=== PATIENT | female | born 1980 | race Caucasian/White ===

== ENCOUNTER 2018-06-30 11:12 | Emergency (ER) | payer MEDICAID ==
[~2018-06-30] VITALS: Ht 165.1 cm; Wt 82.0 kg
[~2018-06-30 11:12] MED LIST: ALBU2.5V11 NEB; IBUP-1223 PO; OXYC-302 PO; PNV61CAP PO; PRED-402 PO
[2018-06-30 11:15] VITALS: BP 137/74
--- NOTE | 2018-06-30 11:53 | NUR ---
PT BACK FROM X-RAY, TOLERATED AMBULATION WELL. CONTINUOUS SPO2 MONITORING BACK IN PLACE. PT DENIES NEEDS AT THIS TIME.
--- NOTE | 2018-06-30 12:10 | NUR ---
REPORT TO VALENTINO PRECIADO
== END 2018-06-30 13:10 | disposition home or self-care (01) ==
LOC: ED 12:54
DX: J45.41 Moderate persistent asthma with (acute) exacerbation (principal)
CPT/HCPCS: 71046; 93005; 99283; J7512

== ENCOUNTER 2019-06-22 14:56 | Inpatient (IN) | payer MEDICAID, OTHER ==
[~2019-06-22] VITALS: Ht 165.1 cm; Wt 92.3 kg
[2019-06-22] MEDS ORDERED: SODIUM CHLORIDE 0.9% 1,000 ML IV ONE (15:01)
--- NOTE | 2019-06-22 15:18 | NUR ---
FROM LOBBY TO ROOM AT THIS TIME
--- NOTE | 2019-06-22 15:30 | NUR ---
PT PRESENTING TO ER FOR SOB SINCE YESTERDAY AT HOME INHALERS NOT HELPING. C/O CHILLS, PRODUCTIVE COUGH. CONNECTED TO ALL MONITORING, TACHY 140s, RR 26, ABLE TO SPEAK IN 3-4 WORD SENTENCES. ALSO C/O LOWER BACK PAIN ON RIGHT FLANK, STS WHEN COUGHING HAS LOSS OF BLADDER CONTROL. PIT ORDERS RECEIVED, LABS COLLECTED. CALL LIGHT WITHIN REACH. AWAITING FURTHER ORDERS AT THIS TIME
--- NOTE | 2019-06-22 15:39 | NUR ---
MD TO BEDSIDE FOR ASSESSMENT
[2019-06-22] MEDS ORDERED: ALBUTEROL/IPRATROPIUM 2.5MG/0.5MG, 3 ML ONE (15:40)
[2019-06-22 15:41] LABS: BASOPHILS # (AUTO) 0.01 x10^3/uL (0-0.1); BASOPHILS % (AUTO) 0 % (0-1); EOSINOPHILS # (AUTO) 0.07 x10^3/uL (0-0.4); EOSINOPHILS % (AUTO) 1 % (1-7); LYMPHOCYTES % (AUTO) 8 % (22-44); MD NO; MEAN CORPUSCULAR HGB CONC 33.8 g/dL (32.4-35.8); MEAN CORPUSCULAR VOLUME 91.8 fL (80-100); MEAN PLATELET VOLUME 8.7 fL (7.4-10.4); MONOCYTES # (AUTO) 0.36 x10^3/uL (0.2-0.8); MONOCYTES % (AUTO) 3 % (2-9); NEUTROPHILS # (AUTO) 10.48 x10^3/uL (1.8-6.8); NEUTROPHILS % (AUTO) 88 % (42-75); PLATELET COUNT 283 x10^3/uL (130-400); RED BLOOD COUNT 4.91 x10^6/uL (3.82-5.3); RED CELL DISTRIBUTION WIDTH 13.6 % (9.6-15.2)
[2019-06-22] MEDS: ALBUTEROL/IPRATROPIUM 2.5MG/0.5MG, 3 ML NPPB SCH ×4 (15:45→23:33)
[2019-06-22] MEDS ORDERED: ALBUTEROL 0.5%, 20ML NPPBCONT ONE (15:50)
[2019-06-22] MEDS ORDERED: ALBUTEROL 0.5%, 20ML ONE (15:52)
[2019-06-22 16:00] LABS: ALBUMIN 3.7 g/dL (3.4-5.0); ANION GAP 8 mmol/L (5-15); CALCIUM 8.7 mg/dL (8.5-10.1); CHLORIDE 109 mmol/L (98-107); CREATININE 0.98 mg/dL (0.55-1.02)
[2019-06-22] MEDS ORDERED: methylPREDNISolone SOD SUCC 125 MG/2 ML IVPush ONE (16:00)
[2019-06-22] MEDS ORDERED: ACETAMINOPHEN 500 MG TABLET PO ONE (16:00)
[2019-06-22 16:04] LABS: TROPONIN I < 0.015 ng/mL (0.000-0.045)
[2019-06-22] MEDS ORDERED: methylPREDNISolone SOD SUCC 125 MG/2 ML ONE (16:04)
[2019-06-22] MEDS ORDERED: MAGNESIUM SULFATE PMX 2GM/50ML 50 ML ONE (16:05)
[2019-06-22] MEDS ORDERED: ACETAMINOPHEN 500 MG TABLET ONE (16:05)
[2019-06-22] MEDS ORDERED: MAGNESIUM SULFATE PMX 2GM/50ML 50 ML IV ONE (17:00)
--- NOTE | 2019-06-22 17:00 | NUR ---
PT RESTING IN BED, REPORTING EASIER TO BREATH AT THIS TIME. HR STILL ELEVATED MD AWARE.
[2019-06-22] MEDS: PLEASE ENTER HEIGHT MC SCH ×2 (17:07→23:38)
--- NOTE | 2019-06-22 17:55 | NUR ---
REPORT GIVEN TO ANGIE AVELAR, PT READY FOR TRANSPORT TO FLOOR
--- NOTE | 2019-06-22 18:01 | NUR ---
PT TAKEN OFF OF CONTINUOUS NEB. PT PLACED ON 2L NC SATING 93%. FLOOR RN TO BE UPDATED
[2019-06-22 18:18] VITALS: BP 133/82
[2019-06-22 20:00] VITALS: BP 127/76
[2019-06-22] MEDS ORDERED: KETOROLAC 30 MG/1 ML IM PRN (20:30)
[2019-06-22] MEDS ORDERED: ALBUTEROL SULFATE 2.5 MG/3 ML NPPB PRN (20:30)
[2019-06-22] MEDS: KETOROLAC 30 MG/1 ML IVPush PRN (21:16)
[2019-06-22] MEDS: HEPARIN 5,000 UNITS/ML, 1ML SQ SCH (21:17)
[2019-06-23 00:36] VITALS: BP 105/65
[2019-06-23] MEDS: CYCLOBENZAPRINE 10 MG TABLET PO PRN ×2 (00:36→17:39)
[2019-06-23] MEDS: ALBUTEROL/IPRATROPIUM 2.5MG/0.5MG, 3 ML NPPB SCH ×7 (01:20→18:26)
[2019-06-23] MEDS ORDERED: KETOROLAC 30 MG/1 ML IVPush PRN (02:30)
[2019-06-23 03:43] LABS: MICROSCOPIC NOT IND
[2019-06-23 03:46] LABS: CULTURE INDICATED? NO
[2019-06-23] MEDS: KETOROLAC 30 MG/1 ML IVPush PRN (03:47)
[2019-06-23 05:50] LABS: BASOPHILS % (AUTO) 0 % (0-1); EOSINOPHILS % (AUTO) 0 % (1-7); LYMPHOCYTES # (AUTO) 0.54 x10^3/uL (1-3.4); LYMPHOCYTES % (AUTO) 7 % (22-44); MD NO; MEAN CORPUSCULAR HEMOGLOBIN 30.8 pg (27.0-34.8); MEAN CORPUSCULAR HGB CONC 33.2 g/dL (32.4-35.8); MEAN CORPUSCULAR VOLUME 92.7 fL (80-100); MEAN PLATELET VOLUME 9.2 fL (7.4-10.4); MONOCYTES # (AUTO) 0.17 x10^3/uL (0.2-0.8); MONOCYTES % (AUTO) 2 % (2-9); NEUTROPHILS # (AUTO) 7.53 x10^3/uL (1.8-6.8); NEUTROPHILS % (AUTO) 91 % (42-75); PLATELET COUNT 244 x10^3/uL (130-400); RED CELL DISTRIBUTION WIDTH 13.9 % (9.6-15.2)
[2019-06-23] MEDS: HEPARIN 5,000 UNITS/ML, 1ML SQ SCH ×2 (05:50→13:31)
[2019-06-23 05:56] LABS: CHLORIDE 110 mmol/L (98-107)
[2019-06-23 06:07] LABS: ANION GAP 10 mmol/L (5-15); CALCIUM 8.6 mg/dL (8.5-10.1); CREATININE 0.97 mg/dL (0.55-1.02)
[2019-06-23 06:31] VITALS: BP 99/59
[2019-06-23] MEDS ORDERED: methylPREDNISolone SOD SUCC 125 MG/2 ML IVPush SCH (09:00)
[2019-06-23] MEDS ORDERED: ACETAMINOPHEN 500 MG TABLET PO ONE (09:00)
[2019-06-23] MEDS: GUAIFENESIN/DM 200-20MG, 10ML UDC PO PRN ×2 (10:14→17:39)
[2019-06-23 12:51] VITALS: BP 125/77
[2019-06-23] MEDS ORDERED: IBUPROFEN 200 MG TABLET PO ONE (13:30)
[2019-06-23] MEDS ORDERED: PRED20TA PO (15:46)
== END 2019-06-23 18:44 | disposition home or self-care (01) | DRG 202 ==
LOC: ED 17:16 → 4EST 17:17 → ED 17:39
PROVIDERS: ADMIT Internal Medicine; ATTEND Internal Medicine
DX: J45.901 Unspecified asthma with (acute) exacerbation (principal); E87.2 Acidosis; F17.200 Nicotine dependence, unspecified, uncomplicated; J06.9 Acute upper respiratory infection, unspecified; M54.9 Dorsalgia, unspecified; R00.0 Tachycardia, unspecified; R06.82 Tachypnea, not elsewhere classified
CPT/HCPCS: 36415; 96374; 99291; J7611; J7620; 71045; 80048; 81003; 82040; 83036; 83735; 83880; 84484; 85025; 93005; 94640; 94644; G0378; J1644; J1885; J2930; J3475; J7030

== ENCOUNTER 2020-06-10 11:06 | Emergency (ER) | payer MEDICAID ==
[~2020-06-10] VITALS: Ht 165.1 cm; Wt 91.3 kg
[~2020-06-10 11:06] MED LIST changes: -OXYC-302 PO; +OXYC1TAB14 PO; +PRED20TA PO
[2020-06-10] MEDS ORDERED: LORazepam 2 MG/ML, 1ML IVPush ONE (11:30)
[2020-06-10] MEDS ORDERED: SODIUM CHLORIDE 0.9% 1,000ML IVBOLUS ONE (11:30)
[2020-06-10] MEDS ORDERED: METOCLOPRAMIDE 5 MG/ML, 2ML IVPush ONE (11:30)
[2020-06-10] MEDS ORDERED: THIAMINE 100 MG in SODIUM CHLORIDE 0.9% 50 ML IVPB ONE (11:30)
--- NOTE | 2020-06-10 11:43 | NUR ---
PT AT ED TO HELP WITH DETOX. PT WAS SOBER FOR 4+YEARS BUT RECENTLY STARTED DRINKING AGAIN. PT CALLED HER PRIMARY DR AND WAS ADVISED TO GO TO THE ED. PT WOKE UP THIS AM WITH NAUSEA, VERTIGO, AND SHAKES AND DRANK 2 SHOTS OF ALCOHOL TO HELP. PT DENIES ANY N/V, SHAKES AT THIS TIME.
[2020-06-10 11:55] LABS: BASOPHILS % (AUTO) 1 % (0-1); EOSINOPHILS % (AUTO) 1 % (1-7); LYMPHOCYTES % (AUTO) 46 % (22-44); MEAN CORPUSCULAR HEMOGLOBIN 30.7 pg (27.0-34.8); MEAN PLATELET VOLUME 8.3 fL (7.4-10.4); MONOCYTES % (AUTO) 15 % (2-9); NEUTROPHILS % (AUTO) 37 % (42-75); PLATELET COUNT 269 x10^3/uL (130-400); RED BLOOD COUNT 4.64 x10^6/uL (3.82-5.3); RED CELL DISTRIBUTION WIDTH 16.5 % (9.6-15.2)
[2020-06-10] MEDS ORDERED: LORazepam 2 MG/ML, 1ML ONE (11:55)
[2020-06-10 11:57] LABS: MD NO
[2020-06-10] MEDS ORDERED: METOCLOPRAMIDE 5 MG/ML, 2ML ONE (11:57)
[2020-06-10 12:08] LABS: ALANINE AMINOTRANSFERASE 47 U/L (12-78); ALBUMIN 3.2 g/dL (3.4-5.0); ANION GAP 6 mmol/L (5-15); CALCIUM 8.8 mg/dL (8.5-10.1); CHLORIDE 108 mmol/L (98-107); CREATININE 0.63 mg/dL (0.55-1.02)
[2020-06-10 12:13] LABS: ALKALINE PHOSPHATASE 162 U/L (45-117); BILIRUBIN,TOTAL 0.3 mg/dL (0.2-1.0); TOTAL PROTEIN 7.5 g/dL (6.4-8.2)
--- NOTE | 2020-06-10 12:18 | NUR ---
PHARMACY TUBED FOR [facility]
[2020-06-10 13:44] VITALS: BP 136/106
--- NOTE | 2020-06-10 13:53 | NUR ---
PT REC'VD DISCHARGE INSTRUCTIONS AND EDUCATION. PT HAD NO FURTHER QUESTIONS. PT IV REMOVED. PT TO DC AREA, STEADY GAIT.
== END 2020-06-10 13:49 | disposition home or self-care (01) ==
LOC: ED 12:14
DX: F10.239 Alcohol dependence with withdrawal, unspecified (principal); R45.1 Restlessness and agitation; R00.0 Tachycardia, unspecified; R11.0 Nausea; J45.909 Unspecified asthma, uncomplicated; Y90.9 Presence of alcohol in blood, level not specified
CPT/HCPCS: 36415; 80053; 80320; 83690; 84703; 85025; 93005; 96361; 96365; 96375; 99285; J2060; J2765; J3411; J7030; G0480

== ENCOUNTER 2020-10-13 02:53 | Emergency (ER) | payer MEDICAID ==
[~2020-10-13] VITALS: Ht 165.1 cm; Wt 96.0 kg
--- NOTE | 2020-10-13 03:11 | NUR ---
PT SENT FROM [facility] FOR HAVING HIGH BP AND HR WELL BEING INTOXICATED WITH A ETOH LEVEL OF .37 PT DRINKS PINT IN HALF OF [place] FOR LAST FEW EEEKS. LAST DRINK FEW HOURS AGO. PT ATTACHED TO CARD/SP02/BP MONITORS. VSS. PT IN NAD BED IN LOW POSITION. CALL LIGHT WITHIN REACH. TM
[2020-10-13 03:21] LABS: BASOPHILS % (AUTO) 1 % (0-1); EOSINOPHILS % (AUTO) 0 % (1-7); LYMPHOCYTES % (AUTO) 46 % (22-44); MEAN CORPUSCULAR HEMOGLOBIN 31.3 pg (27.0-34.8); MEAN CORPUSCULAR HGB CONC 34.5 g/dL (32.4-35.8); MEAN PLATELET VOLUME 8.8 fL (7.4-10.4); MONOCYTES % (AUTO) 9 % (2-9); NEUTROPHILS % (AUTO) 44 % (42-75); PLATELET COUNT 174 x10^3/uL (130-400); RED BLOOD COUNT 4.98 x10^6/uL (3.82-5.3)
[2020-10-13 03:26] LABS: MICROSCOPIC INDICATED
[2020-10-13] MEDS ORDERED: SODIUM CHLORIDE 0.9% 1,000ML IVBOLUS ONE (03:30)
[2020-10-13 03:32] LABS: ALANINE AMINOTRANSFERASE 68 U/L (12-78); ALBUMIN 3.2 g/dL (3.4-5.0); ANION GAP 10 mmol/L (5-15); CHLORIDE 104 mmol/L (98-107)
[2020-10-13 03:33] LABS: SALICYLATE LEVEL < 1.7 mg/dL (2.8-20.0)
[2020-10-13 03:34] LABS: AMPHETAMINE SCREEN, URINE Negative (Negative); BARBITURATE SCREEN, URINE Negative (Negative); BENZODIAZEPINE SCREEN, URINE Negative (Negative); CANNABINOID SCREEN, URINE Negative (Negative); COCAINE SCREEN, URINE Negative (Negative); METHADONE SCREEN, URINE Negative (Negative); OPIATE SCREEN, URINE Negative (Negative)
[2020-10-13 03:37] LABS: ALKALINE PHOSPHATASE 107 U/L (45-117); BILIRUBIN,TOTAL 0.2 mg/dL (0.2-1.0); CREATININE 0.56 mg/dL (0.55-1.02); TOTAL PROTEIN 7.3 g/dL (6.4-8.2)
[2020-10-13] MEDS ORDERED: ONDANSETRON 2MG/ML, 2ML IVPush ONE (04:00)
[2020-10-13] MEDS ORDERED: ONDANSETRON 2MG/ML, 2ML ONE (04:14)
--- NOTE | 2020-10-13 04:16 | NUR ---
PT AMBULATED TO BATHROOM WITH STEADY GAIT. BACK IN BED. CONNECTED TO MONITORS. VSS WITH ELEVATED HR. PT IN NAD. WCTM
--- NOTE | 2020-10-13 04:54 | NUR ---
507 blood glucose level sent to wrong pt. this was not patients glucose level.
[2020-10-13] MEDS ORDERED: FAMOTIDINE 20 MG/2 ML IVPush ONE (05:00)
[2020-10-13] MEDS ORDERED: FAMOTIDINE 20 MG/2 ML ONE (05:15)
--- NOTE | 2020-10-13 05:31 | NUR ---
pt given water and warm blankets
--- NOTE | 2020-10-13 05:50 | NUR ---
PT RSTING IN BED. PT IN NAD. ATTACHED TO MONITORS. VSS WITH ELEVATED HR. BREATHING EVEN AND UNLABORED. PT STILL APPEARS INTOXICATED. BED IN LOW POSITION. CALL LIGHT AND BELONGINGS WITHIN REACH. WCTM
--- NOTE | 2020-10-13 06:05 | NUR ---
TASK RN: PT AMBULATORY WITH STEADY GAIT TO BATHROOM WITH THIS RN. PT DENIES ANY NEEDS AT THIS TIME.
--- NOTE | 2020-10-13 07:00 | NUR ---
GAVE REPORT TO ANA CRISTINA AVELAR
--- NOTE | 2020-10-13 07:10 | NUR ---
REPORT FROM MAE, ASSUME CARE OF PT AT THIS TIME. PT OBSERVED AMBULATORY WITH STEADY GAIT TO BR. AWAITING DISCHARGE PAPERWORK.
[2020-10-13 08:46] VITALS: BP 122/75
--- NOTE | 2020-10-13 08:49 | NUR ---
PT REFUSING TO SIGN DC PAPERS, STATING "I WANT TO STAY AND SLEEP". PT ALSO REFUSING TO GO TO [facility] SHE EXPRESSED EARLIER FOR DETOX. PT GIVEN TAXI VOUCHER FOR SAFE RIDE HOME.
== END 2020-10-13 08:50 | disposition home or self-care (01) ==
LOC: ED 08:20
DX: K29.20 Alcoholic gastritis without bleeding (principal); G31.2 Degeneration of nervous system due to alcohol; R00.0 Tachycardia, unspecified; F10.129 Alcohol abuse with intoxication, unspecified; Y90.0 Blood alcohol level of less than 20 mg/100 ml; Z72.9 Problem related to lifestyle, unspecified
CPT/HCPCS: 36415; 80053; 80299; 80307; 80320; 81001; 82962; 83690; 84702; 85025; 87086; 96361; 96374; 96375; 99285; J2405; J7030; 80329; G0480

== ENCOUNTER 2020-11-21 04:40 | Emergency (ER) | payer MEDICAID ==
[~2020-11-21] VITALS: Ht 165.1 cm; Wt 88.0 kg
--- NOTE | 2020-11-21 04:49 | NUR ---
pt reports long hx with alcoholism. last drink was yesterday. wants to go to a detox program. presents with n/v, tremors related to alcohol detox. has never been in an inpatient facility for detox before. pt attached to all monitors. sinus tach
[2020-11-21] MEDS ORDERED: SODIUM CHLORIDE 0.9% 1,000ML IVBOLUS ONE (05:00)
[2020-11-21] MEDS ORDERED: ONDANSETRON 2MG/ML, 2ML IVPush ONE (05:00)
[2020-11-21] MEDS ORDERED: THIAMINE 100MG TABLET PO ONE (05:00)
[2020-11-21] MEDS ORDERED: SODIUM CHLORIDE FLUSH 10ML SYR IVF ONE (05:00)
[2020-11-21] MEDS ORDERED: LORazepam 2 MG/ML, 1ML ONE ×2 (05:04→08:29)
[2020-11-21] MEDS ORDERED: ONDANSETRON 2MG/ML, 2ML ONE (05:04)
[2020-11-21] MEDS: LORazepam 2 MG/ML, 1ML IVPush PRN ×3 (05:08→08:34)
[2020-11-21 05:17] LABS: BASOPHILS % (AUTO) 1 % (0-1); EOSINOPHILS % (AUTO) 0 % (1-7); LYMPHOCYTES % (AUTO) 28 % (22-44); MEAN CORPUSCULAR HEMOGLOBIN 31.4 pg (27.0-34.8); MEAN CORPUSCULAR HGB CONC 34.8 g/dL (32.4-35.8); MEAN PLATELET VOLUME 8.3 fL (7.4-10.4); MONOCYTES % (AUTO) 5 % (2-9); NEUTROPHILS % (AUTO) 66 % (42-75); PLATELET COUNT 222 x10^3/uL (130-400); RED BLOOD COUNT 4.62 x10^6/uL (3.82-5.3); RED CELL DISTRIBUTION WIDTH 12.9 % (9.6-15.2)
[2020-11-21 05:24] LABS: ALBUMIN 3.1 g/dL (3.4-5.0); ANION GAP 11 mmol/L (5-15); CHLORIDE 104 mmol/L (98-107)
[2020-11-21 05:30] LABS: ALANINE AMINOTRANSFERASE 40 U/L (12-78); ALKALINE PHOSPHATASE 118 U/L (45-117); BILIRUBIN,TOTAL 0.6 mg/dL (0.2-1.0); CREATININE 0.55 mg/dL (0.55-1.02); TOTAL PROTEIN 7.3 g/dL (6.4-8.2)
--- NOTE | 2020-11-21 05:52 | NUR ---
pt still with sinigificant tremors and some nausea w/ dry heaving. medicated with another mg of ativan. pt reports feeling " a little better"
[2020-11-21] MEDS ORDERED: POTASSIUM CHLORIDE 20 MEQ PACKET PO ONE (06:00)
--- NOTE | 2020-11-21 06:49 | NUR ---
pt reports feeling more comfortable. pt resting on gurney, watching tv and sleeping intermittantly. per dr saldana, plan to to help pt access a detox program through another facility.
--- NOTE | 2020-11-21 06:57 | NUR ---
REPORT TO VALENTINO GUY
--- NOTE | 2020-11-21 06:58 | NUR ---
REPORT TO VALENTINO MERRITT
--- NOTE | 2020-11-21 06:58 | NUR ---
REPORT RECEIVED FROM CALI AVELAR. PT RESTING IN BED, A&O, RESPS EVEN AND UNLABORED, VSS, ALL MONITORS ATTACHED, SINUS TACH RHYTHM. CALL HANNAH IN EFRAIN SPEARS.
--- NOTE | 2020-11-21 07:53 | NUR ---
PT RESTING IN BED, RESPS EVEN AND UNLABORED, VSS, ALL MONITORS ATTACHED, NSR, NADN. PT ATTEMPT TO DRINK FLUIDS SUCCESSFUL BUT STATES IT "MADE HER STOMACH UPSET".
[2020-11-21] MEDS ORDERED: THIAMINE 100MG TABLET ONE (08:00)
[2020-11-21] MEDS ORDERED: POTASSIUM CHLORIDE 20 MEQ PACKET ONE (08:01)
--- NOTE | 2020-11-21 08:04 | NUR ---
PT MEDICATED PER ORDER, TOLERATED WELL. VSS, NADN
--- NOTE | 2020-11-21 08:34 | NUR ---
PT AMBULATORY WITH STEADY GAIT TO BATHROOM. UPON RETURN TO ROOM, PT FELT IMMEDIATELY NAUSEOUS. PT DRY HEAVING AND VISIBLY TREMULOUS. MEDICATED WITH PRN ATIVAN PER ORDER, TOLERATED WELL.
--- NOTE | 2020-11-21 09:37 | NUR ---
pt sleeping in bed, resps even and unlabored, vss, nadn.
--- NOTE | 2020-11-21 10:34 | NUR ---
pt states they are unable to hold water down at this time, will continue to monitosr. pt resting in bed, resps even and unlabored, vss, nadn. call light in reach.
[2020-11-21] MEDS ORDERED: METOCLOPRAMIDE 5 MG/ML, 2ML ONE (10:40)
--- NOTE | 2020-11-21 10:49 | NUR ---
MARCELINO CHAVIS AWARE OF VOMITTING/DIARRHEA, ORDERS RECEIEVED. PT MEDICATED, TOLERATED WELL.
[2020-11-21] MEDS ORDERED: METOCLOPRAMIDE 5 MG/ML, 2ML IVPush ONE (11:00)
--- NOTE | 2020-11-21 11:30 | NUR ---
pt resting in bed, feeling better after medication administration, states she no longer feels nauseous or need to vomit. cup of water provided, pt tolerating well at this time.
[2020-11-21 12:03] VITALS: BP 146/50
--- NOTE | 2020-11-21 12:41 | NUR ---
Detox and substance education and resources provided, DC instructions reviewed.
== END 2020-11-21 12:51 | disposition home or self-care (01) ==
LOC: ED 06:27 → UNDOADMOB 06:39 → EDIP 06:39 → ED 12:45
DX: R11.2 Nausea with vomiting, unspecified (principal); F10.239 Alcohol dependence with withdrawal, unspecified; R45.4 Irritability and anger; R00.0 Tachycardia, unspecified; Y90.0 Blood alcohol level of less than 20 mg/100 ml
CPT/HCPCS: 36415; 80053; 83690; 84703; 85025; 96361; 96374; 96375; 96376; 99285; J2060; J2405; J2765; J7030